=== PATIENT | female | born 1975 | race Caucasian/White ===

== ENCOUNTER 2018-02-18 23:03 | Emergency (ER) | payer OTHER, BC ==
[~2018-02-18] VITALS: Ht 177.8 cm; Wt 72.6 kg
[~2018-02-18 23:03] MED LIST: MULVITMINE PO; ONDA4 PO; PROG100 PO
[2018-02-19] MEDS ORDERED: Cyclobenzaprine5 MG PO (00:14)
== END 2018-02-19 00:59 | disposition home or self-care (01) ==
LOC: ER 23:03
DX: T14.8XXA Other injury of unspecified body region, initial encounter (principal); M54.2 Cervicalgia; M25.532 Pain in left wrist; V43.52XA Car driver injured in collision with other type car in traffic accident, initial encounter; Y92.89 Other specified places as the place of occurrence of the external cause
CPT/HCPCS: 73110; 99283-25